=== PATIENT | male | born 1970 | race Caucasian/White ===

== ENCOUNTER → 2020-09-08 | Outpatient (CLI) | payer OTHER ==
--- NOTE | 2020-09-08 15:26 | US ---
EXAMINATION TYPE: US carotid duplex BILAT DATE OF EXAM: 09/08/2020 COMPARISON: NONE CLINICAL HISTORY: 50-year-old male I65.22 Occlusion. TECHNIQUE: Carotid duplex ultrasound examination. Indirect Doppler criteria was utilized. FINDINGS: EXAM MEASUREMENTS: RIGHT: Peak Systolic Velocity (PSV) cm/sec ----- Right CCA: 106.9 ----- Right ICA: 119.8 ----- Right ECA: 95.6 ICA/CCA ratio: 1.1 RIGHT: End Diastole cm/sec ----- Right CCA: 29.2 ----- Right ICA: 52.5 ----- Right ECA: 20.4 LEFT: Peak Systolic Velocity (PSV) cm/sec ----- Left CCA: 102.9 ----- Left ICA: 82.1 ----- Left ECA: 97.5 ICA/CCA ratio: 0.8 LEFT: End Diastole cm/sec ----- Left CCA: 27.0 ----- Left ICA: 34.8 ----- Left ECA: 22.7 VERTEBRALS (direction of flow): Right Vertebral: Antegrade Left Vertebral: Antegrade Rhythm: Normal Junior Mechanical Engineer notes: Bilateral intimal thickening, no elevated velocities, no significant stenosis. IMPRESSION: No hemodynamically significant internal carotid artery stenosis on either side. Criteria for Assigning % of Stenosis / Diameter reduction (Estimation based on the indirect measurements of the internal carotid artery velocities (ICA PSV). 1. Normal (no stenosis)=ICA PSV < 125 cm/s: ratio < 2.0: ICA EDV<40 cm/s. 2. Less than 50% stenosis=ICA PSV < 125 cm/s: ratio < 2.0: ICA EDV<40 cm/s. 3. 50 to 69% stenosis=ICA PSV of 125 to 230 cm/s: ration 2.0 ? 4.0: ICA EDV 40-100 cm/s. 4. Greater than 70% stenosis to near occlusion= ICA PSV > 230 cm/s: ratio > 4.0: ICA EDV > 100 cm/s. 5. Near occlusion= ICA PSV velocities may be low or undetectable: variable ratio and ICA EDV. 6. Total occlusion=unable to detect flow.
== END | disposition home or self-care (01) ==
LOC: RADUSWWP 13:23
PROVIDERS: ATTEND Family Medicine
DX: I65.22 Occlusion and stenosis of left carotid artery (principal)
CPT/HCPCS: 93880

== ENCOUNTER → 2023-10-27 | Outpatient (CLI) | payer OTHER ==
--- NOTE | 2023-10-27 12:40 | FL ---
EXAMINATION TYPE: FL barium swallow DATE OF EXAM: 10/27/2023 CLINICAL INDICATION: 53-year-old male R13.19 ESOPHOGEAL DYSPHAGIA COMPARISON: None Total Fluoroscopy Time: 1 minute 45 seconds Total DAP: [id number]. 39 images obtained. FINDINGS: The swallowing mechanism is normal and hypopharyngeal anatomy is preserved. The cervical and thoracic portions have a normal course and caliber and normal motility. The mucosa is normal and no persistent filling defect is encountered. There is a small sliding hiatal hernia present. Gastroesophageal reflux did not be elicited with Vals luke or positional maneuvers. IMPRESSION: Small sliding hiatal hernia. Otherwise, unremarkable esophagram.
== END | disposition home or self-care (01) ==
LOC: RADUSWWP 09:42
PROVIDERS: ATTEND Internal Medicine
DX: K44.9 Diaphragmatic hernia without obstruction or gangrene (principal); R13.19 Other dysphagia
CPT/HCPCS: 74220

== ENCOUNTER 2023-12-13 12:11 | Day surgery (SDC) | payer OTHER ==
[~2023-12-13 12:11] MED LIST: LIDOCAINE 1% (10MG/ML) FOR IV START INTRADERMA PRN
[2023-12-13] MEDS: LACTATED RINGERS 1,000 ML IV SCH (13:22)
[2023-12-13] MEDS ORDERED: PROPOFOL 10 MG/ML 20 ML VIAL IV ONE (13:45)
--- NOTE | 2023-12-13 13:51 | P.GSHP ---
History of Present Illness H&P Date: 12/13/23 Chief Complaint: Colon cancer screening 53-year-old male here today for colonoscopy. Not had 1 previously. No bowel complaints. No family history of colon cancer. Past Medical History Additional Past Medical History / Comment(s): heart murmur, borderline cholesterol. History of Any Multi-Drug Resistant Organisms: None Reported Additional Past Surgical History / Comment(s): wisdom teeth removed. Past Anesthesia/Blood Transfusion Reactions: No Reported Reaction Smoking Status: Former smoker - Past Family History Sister(s) Family Medical History: Thyroid Disorder Additional Family Medical History / Comment(s): twin sister with high cholesterol. Medications and Allergies Home Medications Medication Instructions Recorded Confirmed Type Ibuprofen [Advil] 200 mg PO DIRECTED 12/09/23 12/09/23 History Allergies Allergy/AdvReac Type Severity Reaction Status Date / Time No Known Allergies Allergy Verified 12/13/23 13:10 Surgical - Exam Vital Signs Temp Pulse Resp BP Pulse Ox 97. F L 62 18 129/77 100 12/13/23 13:23 12/13/23 13:23 12/13/23 13:23 12/13/23 13:23 12/13/23 13:23 Physical exam: General: Well-developed, well-nourished HEENT: Normocephalic, sclerae nonicteric Abdomen: Nontender, nondistended Extremities: No edema Neuro: Alert and oriented Assessment and Plan (1) Colon cancer screening Narrative/Plan: Will proceed with colonoscopy at this time. Current Visit: Yes Status: Acute Code(s): Z12.11 - ENCOUNTER FOR SCREENING FOR MALIGNANT NEOPLASM OF COLON SNOMED Code(s): 209073690
--- NOTE | 2023-12-13 14:10 | P.PCN ---
Date of Procedure: 12/13/23 Procedure(s) Performed: PREOPERATIVE DIAGNOSIS: Colon cancer screening POSTOPERATIVE DIAGNOSIS: Tortuous colon otherwise normal PROCEDURE: Colonoscopy ANESTHESIA: MAC SURGEON: Malik Millan M.D. SPECIMENS: None ENDOSCOPIC PROCEDURE: The patient was placed on the endoscopy table in the left decubitus position. The Olympus colonoscope was inserted into the anus and passed under direct visualization to the base of the cecum. The appendiceal orifice was visualized. From that point the scope was slowly withdrawn inspecting all surfaces carefully. There were no neoplastic inflammatory or polypoid lesions throughout the cecum, ascending, transverse, descending, sigmoid and rectum. There was no visible diverticulosis noted. The patient's colon was fairly tortuous. We had to use the pediatric scope for the procedure. Digital rectal examination was normal. The patient was taken to the recovery room in stable condition per anesthesia guidelines. RECOMMENDATIONS: Resume diet. Repeat colonoscopy 7 to 10 years.
[2023-12-13 14:39] VITALS: RESP 14
[2023-12-13 15:22] VITALS: BP 102/57; PULSE 63
== END 2023-12-13 15:03 | disposition home or self-care (01) ==
LOC: ORWHC2ENDO 12:11
PROVIDERS: ATTEND Surgery
DX: Z12.11 Encounter for screening for malignant neoplasm of colon (principal); K63.89 Other specified diseases of intestine; E78.5 Hyperlipidemia, unspecified; Z79.899 Other long term (current) drug therapy; Z87.891 Personal history of nicotine dependence
CPT/HCPCS: 45378; J2704

== ENCOUNTER → 2024-04-12 | Outpatient (CLI) | payer OTHER | END | disposition home or self-care (01) | LOC: LABPRL 12:00 | PROVIDERS: ATTEND Internal Medicine | DX: E78.2 Mixed hyperlipidemia (principal); R13.19 Other dysphagia; R73.09 Other abnormal glucose | CPT/HCPCS: 80053; 80061; 83036; 84443; 85025 ==